=== PATIENT | female | born 2000 | race African-American/Black ===

== ENCOUNTER 2020-06-18 02:58 | Inpatient (IN) | payer OTHER ==
[2020-06-18] MEDS ORDERED: ELECTROLYTE-148 SOLN 1,000 ML IV SCH (03:30)
[2020-06-18] MEDS ORDERED: OXYTOCIN 20 UNITS in 0.9% NS 20 UNIT/1,000 ML INFUS.BAG IV ONE ×2 (03:57→08:48)
[2020-06-18] MEDS ORDERED: LIDOCAINE HCL 1% PRESERVATIVE FREE - 30ML VIAL ONE (03:57)
[2020-06-18 04:28] LABS: BASO % 0.3 % (0-2.0); EOS % 0.4 % (0-4.5); HEMATOCRIT 33.2 % (32.4-45.2); HEMOGLOBIN 11.1 GM/dL (10.7-15.3); MCHC 33.4 g/dl (32.0-36.0); MEAN CELL VOLUME 83.7 fl (80-96); MEAN PLT VOLUME 9.5 fl (7.5-11.1); MONO % 9.3 % (3.8-10.2); PLATELET COUNT 188 K/MM3 (134-434); RBC 3.96 M/mm3 (3.60-5.2); RDW 16.4 % (11.6-15.6); WHITE BLOOD COUNT 8.8 K/mm3 (4.0-10.0)
[2020-06-18 04:35] LABS: INR 0.92 (0.83-1.09); PROTHROMBIN TIME (PATIENT) 11.2 SEC (9.7-13.0)
[2020-06-18 04:38] LABS: ACTIVATED PTT 30.8 SECONDS (25.2-36.5)
[2020-06-18] MEDS ORDERED: ACETAMINOPHEN 325 MG TABLET (FP) ONE ×2 (04:43→13:47)
[2020-06-18] MEDS ORDERED: IBUPROFEN 600 MG TABLET (FP) PO ONE ×2 (04:44→13:47)
[2020-06-18] MEDS: ACETAMINOPHEN 325 MG TABLET (FP) PO PRN ×2 (04:45→13:54)
[2020-06-18] MEDS: IBUPROFEN 600 MG TABLET (FP) PO PRN ×2 (04:45→13:53)
[2020-06-18 04:48] LABS: POTASSIUM 3.8 mmol/L (3.5-5.1)
[2020-06-18 04:49] LABS: CALCIUM 8.9 mg/dL (8.5-10.1)
[2020-06-18] MEDS ORDERED: WITCH HAZEL 50% (TUCKS) 40 PAD/JAR PAD TP PRN (04:49)
[2020-06-18] MEDS ORDERED: BENZOCAINE 20% 57 GM BOTTLE TP PRN (04:49)
[2020-06-18] MEDS ORDERED: METHYLERGONOVINE MALEATE 0.2 MG/1 ML AMP IM PRN (04:49)
[2020-06-18] MEDS ORDERED: BENZOCAINE 28 GM HEMORRHOIDAL OINTMENT TP PRN (04:49)
[2020-06-18] MEDS ORDERED: BISACODYL 10 MG SUPP.RECT RC PRN (04:49)
[2020-06-18 04:50] LABS: BLOOD UREA NITROGEN 4.4 mg/dL (7-18)
[2020-06-18 04:53] LABS: CREATININE 0.6 mg/dL (0.55-1.3)
[2020-06-18] MEDS ORDERED: OXYTOCIN 20 UNITS in 0.9% NS 20 UNIT/1,000 ML INFUS.BAG IV SCH (05:00)
[2020-06-18 05:18] VITALS: BMI 36.1
[2020-06-18] MEDS: FERROUS SO4 325 MG TABLET (FP) PO SCH ×2 (08:00→16:57)
[2020-06-18] MEDS ORDERED: FERROUS SO4 325 MG TABLET (FP) ONE (09:38)
[2020-06-18] MEDS ORDERED: PRENATAL VITAMINS W/ FOLIC ACID TABLET (FP) PO ONE (09:39)
[2020-06-18] MEDS: PRENATAL VITAMINS W/ FOLIC ACID TABLET (FP) PO SCH (09:42)
[2020-06-19 08:33] LABS: BASO % 0.5 % (0-2.0); EOS % 0.9 % (0-4.5); HEMOGLOBIN 10.7 GM/dL (10.7-15.3); LYMPH % 27.9 % (8-40); MCH 28.2 pg (25.7-33.7); MCHC 33.3 g/dl (32.0-36.0); MEAN CELL VOLUME 84.7 fl (80-96); MEAN PLT VOLUME 9.4 fl (7.5-11.1); NEUT % 61.7 % (42.8-82.8); PLATELET COUNT 191 K/MM3 (134-434); RBC 3.78 M/mm3 (3.60-5.2); RDW 16.4 % (11.6-15.6); WHITE BLOOD COUNT 9.4 K/mm3 (4.0-10.0)
[2020-06-19] MEDS: FERROUS SO4 325 MG TABLET (FP) PO SCH ×2 (09:22→17:49)
[2020-06-19] MEDS: ACETAMINOPHEN 325 MG TABLET (FP) PO PRN (09:22)
[2020-06-19] MEDS: PRENATAL VITAMINS W/ FOLIC ACID TABLET (FP) PO SCH (09:22)
[2020-06-19] MEDS: IBUPROFEN 600 MG TABLET (FP) PO PRN (09:23)
[2020-06-19] MEDS ORDERED: SENNOSIDES/DOCUSATE COMBO (SENNA PLUS) TABLET (UD) PO PRN (22:00)
[2020-06-20] MEDS: FERROUS SO4 325 MG TABLET (FP) PO SCH (08:48)
[2020-06-20 09:02] VITALS: BP 101/67; PULSE 70; TEMP 98.5
[2020-06-20] MEDS: PRENATAL VITAMINS W/ FOLIC ACID TABLET (FP) PO SCH (10:46)
== END 2020-06-20 15:15 | disposition home or self-care (01) | DRG 560 ==
LOC: JDEL 02:58 → JLDR 04:00 → J3W 14:20
PROVIDERS: ADMIT Obstetrics & Gynecology; ATTEND Obstetrics & Gynecology
PROC: 10E0XZZ Delivery of Products of Conception, External Approach (ICD-10-PCS; principal; 2020-06-18)
PROC: 0HQ9XZZ Repair Perineum Skin, External Approach (ICD-10-PCS; 2020-06-18)
DX: O42.02 Full-term premature rupture of membranes, onset of labor within 24 hours of rupture (principal); O70.0 First degree perineal laceration during delivery; O69.89X0 Labor and delivery complicated by other cord complications, not applicable or unspecified; Z86.19 Personal history of other infectious and parasitic diseases; Z3A.38 38 weeks gestation of pregnancy; Z37.0 Single live birth; N63.20 Unspecified lump in the left breast, unspecified quadrant
CPT/HCPCS: 36415; 59409; 80048; 85025; 85610; 85730; 86780; 86850; 86900; 86901; C9803; U0003